=== PATIENT | male | born 1955 | race Hispanic/Latino ===

== ENCOUNTER → 2022-07-22 | Outpatient (CLI) | payer OTHER | END | disposition home or self-care (01) | LOC: SHCH 14:43 | PROVIDERS: ATTEND Student in an Organized Health Care Education/Training Program | DX: I07.1 Rheumatic tricuspid insufficiency (principal); I48.0 Paroxysmal atrial fibrillation | CPT/HCPCS: 93306 ==

== ENCOUNTER → 2022-08-12 | Outpatient (CLI) | payer OTHER, MEDICARE ==
[2022-08-12 12:22] LABS: BASOPHILS % (AUTO) 0.1 % (0.0-5.0); HEMATOCRIT 47.6 % (42-54); LYMPHOCYTES % (AUTO) 10.5 % (21.0-51.0); MEAN CORPUSCULAR HEMOGLOBIN 31.4 pg (27.0-33.0); MEAN CORPUSCULAR HGB CONC 33.6 g/dL (32.0-36.0); MEAN CORPUSCULAR VOLUME 93.5 fL (79-99); MONOCYTES % (AUTO) 3.3 % (3.0-13.0); NEUTROPHILS % (AUTO) 85.6 % (40.0-77.0); PLATELET COUNT (AUTO) 181 K/uL (130-400); RED BLOOD CELL COUNT(AUTO) 5.09 MIL/uL (4.50-6.20); RED CELL DISTRIBUTION WIDTH 14.3 % (11.0-15.5); WHITE BLOOD COUNT (AUTO) 10.9 K/uL (4.8-10.8)
[2022-08-12 12:40] LABS: CREATININE 0.9 mg/dL (0.5-1.5); POTASSIUM 3.7 mmol/L (3.5-5.1)
== END | disposition home or self-care (01) ==
LOC: LAB 08:18
PROVIDERS: ATTEND Student in an Organized Health Care Education/Training Program
DX: I48.91 Unspecified atrial fibrillation (principal); Z79.899 Other long term (current) drug therapy
CPT/HCPCS: 36415; 80048; 80061; 85025

== ENCOUNTER → 2022-08-17 | Outpatient (CLI) | payer OTHER, MEDICARE ==
[~2022-08-17] MED LIST: IOHEXOL-350 50ML VIAL IV ONE; IOHEXOL-350 75 ML VIAL IV ONE
== END | disposition home or self-care (01) ==
LOC: RAH 09:13
PROVIDERS: ATTEND Student in an Organized Health Care Education/Training Program
DX: I48.91 Unspecified atrial fibrillation (principal)
CPT/HCPCS: 71270; Q9967

== ENCOUNTER → 2023-01-24 | Outpatient (CLI) | payer OTHER, MEDICARE | END | disposition home or self-care (01) | LOC: SHCH 08:23 | PROVIDERS: ATTEND Student in an Organized Health Care Education/Training Program | DX: Z13.6 Encounter for screening for cardiovascular disorders (principal); I73.9 Peripheral vascular disease, unspecified | CPT/HCPCS: 93925; 93978 ==

== ENCOUNTER → 2023-03-16 | Outpatient (CLI) | payer MEDICARE ==
[2023-03-16 12:18] LABS: CREATININE 0.8 mg/dL (0.5-1.5)
== END | disposition home or self-care (01) ==
LOC: LAB 08:19
PROVIDERS: ATTEND Student in an Organized Health Care Education/Training Program
DX: M75.120 Complete rotator cuff tear or rupture of unspecified shoulder, not specified as traumatic (principal); I48.91 Unspecified atrial fibrillation
CPT/HCPCS: 36415; 82565; 84520

== ENCOUNTER → 2023-03-21 | Outpatient (CLI) | payer MEDICARE | END | disposition home or self-care (01) | LOC: RAH 14:03 | PROVIDERS: ATTEND Student in an Organized Health Care Education/Training Program | DX: M75.121 Complete rotator cuff tear or rupture of right shoulder, not specified as traumatic (principal); M75.122 Complete rotator cuff tear or rupture of left shoulder, not specified as traumatic | CPT/HCPCS: 73030 ==

== ENCOUNTER → 2023-04-14 | Outpatient (CLI) | payer MEDICARE ==
[2023-04-14 12:57] LABS: CREATININE 0.8 mg/dL (0.5-1.5); POTASSIUM 4.2 mmol/L (3.5-5.1)
== END | disposition home or self-care (01) ==
LOC: LAB 08:13
PROVIDERS: ATTEND Student in an Organized Health Care Education/Training Program
DX: M75.120 Complete rotator cuff tear or rupture of unspecified shoulder, not specified as traumatic (principal); I51.7 Cardiomegaly
CPT/HCPCS: 36415; 80048

== ENCOUNTER → 2023-06-23 | Outpatient (CLI) | payer MEDICARE ==
[2023-06-23 12:44] LABS: CREATININE 0.8 mg/dL (0.5-1.3); POTASSIUM 4.3 mmol/L (3.5-5.1)
== END | disposition home or self-care (01) ==
LOC: LAB 08:14
PROVIDERS: ATTEND Student in an Organized Health Care Education/Training Program
DX: M75.120 Complete rotator cuff tear or rupture of unspecified shoulder, not specified as traumatic (principal)
CPT/HCPCS: 36415; 80048

== ENCOUNTER → 2023-06-30 | Outpatient (CLI) | payer MEDICARE ==
[~2023-06-30] MED LIST changes: +GADOTERATE MEGLUMINE 10 MMOL/20 ML VIAL IV ONE; -IOHEXOL-350 50ML VIAL IV ONE; -IOHEXOL-350 75 ML VIAL IV ONE
== END | disposition home or self-care (01) ==
LOC: RAH 12:40
PROVIDERS: ATTEND Student in an Organized Health Care Education/Training Program
DX: M19.012 Primary osteoarthritis, left shoulder (principal); M75.122 Complete rotator cuff tear or rupture of left shoulder, not specified as traumatic
CPT/HCPCS: 73223; A9575

== ENCOUNTER → 2023-07-04 | Outpatient (CLI) | payer MEDICARE ==
[~2023-07-04] MED LIST changes: +DULO30CA52 PO; +FAMO20TA8 PO; +FOLI0.4T6 PO; -GADOTERATE MEGLUMINE 10 MMOL/20 ML VIAL IV ONE; +METO25TA6 PO; +MULT-1203 PO; +TAMS-1 PO; +VITA100049 PO
== END | disposition home or self-care (01) ==
LOC: RAH 12:35
PROVIDERS: ATTEND Internal Medicine Gastroenterology
DX: R13.12 Dysphagia, oropharyngeal phase (principal); R63.30 Feeding difficulties, unspecified
CPT/HCPCS: 74230; 92611

== ENCOUNTER 2023-08-30 05:33 | Day surgery (SDC) | payer MEDICARE ==
[~2023-08-30] VITALS: Ht 170.2 cm; Wt 73.0 kg
[2023-08-30] VITALS (11 sets, daily range): BP systolic 98–131; BP diastolic 67–89; PULSE 68–86; RESP 14–17
[~2023-08-30 05:33] MED LIST changes: +VITA-348 PO; -VITA100049 PO
[2023-08-30] MEDS: 0.9%NACL 1000ML 1,000 ML IV ONE (06:20)
[2023-08-30] MEDS ORDERED: PROPOFOL 10 MG/ML 20ML VIAL IV ONE (07:20)
== END 2023-08-30 09:05 | disposition home or self-care (01) ==
LOC: DAH 05:33 → EDSTATUS 09:00 → DAH 09:05
PROVIDERS: ATTEND Internal Medicine Gastroenterology
DX: Z12.11 Encounter for screening for malignant neoplasm of colon (principal); D12.3 Benign neoplasm of transverse colon; I10 Essential (primary) hypertension; J45.909 Unspecified asthma, uncomplicated; M19.90 Unspecified osteoarthritis, unspecified site; R13.12 Dysphagia, oropharyngeal phase; K59.00 Constipation, unspecified; K21.9 Gastro-esophageal reflux disease without esophagitis; K22.2 Esophageal obstruction; K44.9 Diaphragmatic hernia without obstruction or gangrene; Z93.1 Gastrostomy status; Z83.3 Family history of diabetes mellitus; Z83.79 Family history of other diseases of the digestive system; Z79.899 Other long term (current) drug therapy; Z98.890 Other specified postprocedural states
CPT/HCPCS: 45385; J7030; J2704; A4620; A4649; A4215 ×2; A4223; A4222; A4221; A4663; A4606; J3490

== ENCOUNTER → 2024-01-08 | Outpatient (CLI) | payer MEDICARE ==
[~2024-01-08] MED LIST changes: +DIATR MEGLU/DIATRIZOATE SODIUM 30 ML BOTTLE ONE
== END | disposition home or self-care (01) ==
LOC: RAH 10:47
PROVIDERS: ATTEND Internal Medicine Gastroenterology
DX: K94.20 Gastrostomy complication, unspecified (principal)
CPT/HCPCS: 74018; Q9963